=== PATIENT | male | born 1990 | race Caucasian/White ===

== ENCOUNTER 2020-02-01 15:28 | Emergency (ER) | payer OTHER, SELFPAY ==
[2020-02-01 15:33] VITALS: BP 114/62; PULSE 114; RESP 15; TEMP 36.9; O2SAT 98; BMI 21.4
--- NOTE | 2020-02-01 15:44 | ED_ITS ---
HPI - General Adult General: Chief complaint: General Medical Stated complaint: poss heat stroke Time Seen by Provider: 02/01/20 15:40 History of Present Illness: HPI narrative: Patient states worked outside all these and just got hot. Has been sweating he just felt nauseous right leg started cramping up. She does have a couple weeks ago. Onset (ago): hour(s) Relieving factors: none Associated symptoms: Reports nausea; Deny chest pain, dyspnea, headache(s) or rash Review of Systems Const: Denies: fever(s), chills or body aches Eyes: Denies: change in vision or blurry vision ENMT: Denies: throat pain or nasal congestion Card: Denies: chest pain or dyspnea on exertion Resp: Denies: dyspnea, productive cough or non-productive cough GI: Reports: nausea : Denies: difficulty urinating Musc: Reports: other (Muscle cramps right leg shoulder); Denies: extremity pain Skin/Breast: Denies: rash Neuro: Denies: headache(s) Psych: Denies: anxiety or depression Aashish/Lymph: Denies: easy bruising PFSH ED PFSH: Social History Smoking and tobacco status: never smoked Physical Exam Const: COMMON NORMALS: no acute distress, average body habitus and patient oriented x3 HENMT: COMMON NORMALS: normocephalic HEAD & SCALP: normal to inspection and normocephalic FACE & SINUS: normal facial exam Eye: COMMON NORMALS: conjunctivae normal GENERAL EYE: appearance normal, both eyes and all related structures CONJUNCTIVA: Yes conjunctivae normal Neck/C-Spine: COMMON NORMALS: no JVD Chest: COMMONS NORMALS: normal inspection of the chest Resp: COMMON NORMALS: normal respiratory effort and clear to auscultation bilaterally AUSCULTATION: clear to auscultation bilaterally Cardio: COMMON NORMALS: no JVD, regular rate and regular rhythm RATE: regular rate RHYTHM: regular rhythm GI: COMMON NORMALS: Normal to inspection, nondistended, normoactive bowel sounds present Extremity: COMMON NORMALS: normal to inspection and full ROM Neuro: COMMON NORMALS: patient oriented x3 Course Vital Signs: Vital signs: Vital Signs Temperature 98.4 F 02/01/20 15:33 Pulse Rate 114 H 02/01/20 15:33 Respiratory Rate 15 02/01/20 15:33 Blood Pressure 114/62 02/01/20 15:33 Pulse Oximetry 98 02/01/20 15:33 MDM - General Adult MDM Narrative: Medical decision making narrative: sinus tach, 104 bpm Coding Level of Care Code ED Real Estate Loan Processor for Chg Fwd Exam Comprehensive
--- NOTE | 2020-02-01 15:45 | ECG_ITS ---
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 Measurements Intervals [place] Rate: 104 P: 67 MI: 133 QRS: 71 QRSD: 81 T: 45 QT: 305 QTc: 403 Interpretive Statements SINUS TACHYCARDIA NONSPECIFIC T-WAVE ABNORMALITY No previous ECG available for comparison Electronically Signed On 02-01-2020 16:13:36 CDT by Tara Maier M.D. [id number]
[2020-02-01 16:07] LABS: Basophils # 0.1 10^3/uL (0.0-0.1); Basophils % 0.4 %; Eosinophils % 0.3 %; Hematocrit 44.4 % (42.0-52.0); Hemoglobin 15.1 g/dL (11.7-16.6); Lymphocytes # 0.6 10^3/uL (0.8-4.8); Lymphocytes % 4.3 %; Mean Corpuscular Hemoglobin 29.9 pg (28.0-34.0); Mean Corpuscular Volume 87.9 fL (80-94); Mean Platelet Volume 8.9 fL (7.4-10.4); Monocytes # 1.1 10^3/uL (0.2-0.9); Monocytes % 8.4 %; Neutrophils # 11.3 10^3/uL (1.8-7.7); Neutrophils % 86.1 %; Nucleated Red Blood Cells % 0 %; Platelet Count 230 10^3/cmm (130-400); Red Blood Count 5.05 10^6/uL (4.1-5.3); Red Cell Distribution Width 11.8 % (12.1-15.1); White Blood Count 13.1 10^3/uL (4.0-10.0)
[2020-02-01] MEDS: orphenadrine 30 mg/mL Inj 2 mL 60 MG IVP (16:07)
[2020-02-01] MEDS: sodium chloride 0.9% 1,000 ML 999 ML IV (16:08)
[2020-02-01 16:44] LABS: Alanine Aminotransferase 14 U/L (0-41); Albumin Level 4.3 g/dL (3.5-5.2); Alkaline Phosphatase 58 IU/L (40-130); Anion Gap 16.1 (5-19); Aspartate Amino Transferase 15 U/L (0-40); Blood Urea Nitrogen 12 mg/dL (6-20); Calcium 9.5 mg/dL (8.5-10.5); Carbon Dioxide 24 mmol/L (22-29); Chloride 104 mmol/L (98-107); Globulin 2.3 g/dL (1.3-4.6); Glucose 112 mg/dL (65-115); Osmolality Calculated 287 mOsm/kg (285-295); Potassium 4.1 mmol/L (3.5-5.1); Sodium 140 mmol/L (136-145); Total Bilirubin 0.6 mg/dL (0.15-1.2); Total Protein 6.6 g/dL (6.6-8.7)
[2020-02-01 16:47] LABS: Add Urine Microscopic? NO
[2020-02-01 16:54] LABS: Bilirubin Urine Neg (NEGATIVE); Blood Urine Neg (Negative); Glucose Urine UA Norm (Normal); Ketones Urine Negative (Negative); Leukocyte Esterase Urine Negative (Negative); Nitrate Urine Negative (Negative); Protein Urine Neg (Negative); Specific Gravity, Urine 1.025 (1.005-1.030); Urine Appearance Clear (CLEAR); Urine Color Yellow (Yellow); Urobilinogen Urine 1 mg/dL (Negative); pH Urine 5 (5-7)
[2020-02-01 17:22] VITALS: BP 114/75; PULSE 78; RESP 18; O2SAT 98
== END 2020-02-01 17:25 | disposition home or self-care (01) ==
PROVIDERS: Emergency Provider Nurse Practitioner Family
DX: R25.2 Cramp and spasm (principal)
CPT/HCPCS: 12345; 36415; 80053; 81003; 85025; 93005; 96361; 96374; 96375; 99283; J2360; J7030

== ENCOUNTER 2022-04-30 01:05 | Emergency (ER) | payer OTHER, SELFPAY ==
[2022-04-30 01:08] VITALS: BP 129/79; PULSE 54; RESP 16; TEMP 36.6; O2SAT 99; BMI 22.8
--- NOTE | 2022-04-30 01:15 | ECG_ITS ---
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 Measurements Intervals [place] Rate: 54 P: 73 NV: 139 QRS: 81 QRSD: 98 T: 62 QT: 407 QTc: 389 Interpretive Statements SINUS BRADYCARDIA POSSIBLE LEFT ATRIAL ENLARGEMENT [-0.1mV P-WAVE IN V1/V2] Compared to ECG 02/01/2020 15:52:33 Sinus tachycardia no longer present T-wave abnormality no longer present Electronically Signed On 04-30-2022 10:41:22 CDT by Bhupinder Wilde M.D. [id number]
--- NOTE | 2022-04-30 01:50 | XRR_ITS ---
PROCEDURE INFORMATION: Exam: XR Chest Exam date and time: 04/30/2022 5:49 AM Age: 32 years old Clinical indication: Shortness of breath; Chest pressure; Patient HX: C/O chest pain with SOB. ; Additional info: Cp TECHNIQUE: Imaging protocol: Radiologic exam of the chest. Views: 1 view. COMPARISON: CT abdomen pelvis w con* [id number] 12/20/2018 11:37 AM FINDINGS: Lungs: No consolidation. Pleural spaces: Unremarkable. No pleural effusion. No pneumothorax. Heart/Mediastinum: No cardiomegaly. Bones/joints: No acute fracture. XR/XR chest 1V portable [id number] IMPRESSION: No acute findings.
[2022-04-30 02:41] LABS: SARS Covid-2 Antigen Negative (Negative)
--- NOTE | 2022-04-30 06:05 | ED_ITS ---
HPI - Chest Pain General: Chief Complaint: Chest Pain Stated Complaint: CP, SOB Time Seen by Provider: 04/30/22 05:57 Source: patient Mode of arrival: ambulatory Limitations: no limitations History of Present Illness: 32-year-old male states that he has had a cough for the last 4 to 5 days he been having constant chest pain on the left side of his chest he states that pain is sharp in nature he states it is worse with movement and palpation improved with rest. Patient denies any fever denies any vomiting states pain is currently a 2 out of 10 sharp in nature. Associated symptoms: Deny abdominal pain, dyspnea, fever(s), nausea or vomiting Review of Systems Const: Denies: fever(s), chills, body aches or change in appetite Eyes: Denies: blurry vision or eye discomfort ENMT: Denies: throat pain or dental pain Card: Denies: chest pain Resp: Denies: dyspnea GI: Denies: abdominal pain, nausea, vomiting or diarrhea : Denies: dysuria Musc: Denies: neck pain or back pain Skin/Breast: Denies: rash Neuro: Denies: headache(s) Psych: Denies: depression Aashish/Lymph: Denies: easy bruising All/Imm: Denies: urticaria PFSH ED PFSH: Medical History (Updated 04/30/22 @ 06:31 by Yefri Christy MD) No pertinent past medical history Social History Smoking and tobacco status: never smoked Physical Exam Const: COMMON NORMALS: no acute distress, patient oriented x3 and healthy appearing HENMT: COMMON NORMALS: normocephalic and atraumatic HEAD & SCALP: normocephalic and atraumatic Eye: COMMON NORMALS: Equal, round and reactive pupils present and EOMs intact bilaterally PUPIL: Yes Equal, round and reactive pupils present Neck/C-Spine: COMMON NORMALS: full ROM and supple Chest: COMMONS NORMALS: normal inspection of the chest OTHER: point tender over left chest Resp: COMMON NORMALS: normal respiratory effort, No retractions, No use of accessory muscles and clear to auscultation bilaterally AUSCULTATION: clear to auscultation bilaterally Cardio: COMMON NORMALS: regular rate, regular rhythm and No murmurs present (Cardio) RATE: regular rate RHYTHM: regular rhythm GI: COMMON NORMALS: Normal to inspection, nondistended, normoactive bowel sounds present, Soft to palpation, non-tender and no masses PALPATION: Yes Soft to palpation Extremity: COMMON NORMALS: normal to inspection and full ROM Neuro: COMMON NORMALS: patient oriented x3, moves all extremities and no focal motor deficits Psych: COMMON NORMALS: mental status grossly normal, Normal thought process present and cooperative THOUGHT PROCESS: Normal thought process present Skin: COMMON NORMALS: no rashes or lesions noted and no wounds GENERAL SKIN EXAM: no rashes or lesions noted Course Vital Signs: Vital signs: Vital Signs Temperature 97.8 F 04/30/22 01:08 Pulse Rate 44 L 04/30/22 06:18 Respiratory Rate 12 04/30/22 06:18 Blood Pressure 105/51 04/30/22 06:18 Pulse Oximetry 100 04/30/22 06:18 MDM - Chest Pain Medical Decision Making Patient presents here with chest pains atypical in nature he has had a cough and pain sharp in nature for days EKG x-ray normal he is point tender on left chest likely causing his pain he has no signs of acute coronary syndrome or pulmonary embolism he is stable for discharge she is to follow-up with PCP and return if worsening. Lab Data Laboratory Results SARS-CoV-2 Ag (Rapid) Negative (Negative) 04/30/22 02:16 Discharge Plan Discharge Patient Disposition: Home Clinical Impression: Chest pain Condition: Stable Prescriptions: New Naprosyn 500 mg tablet 500 mg PO BID PRN (Reason: pain) Qty: 20 0RF No Action ibuprofen 200 mg Tablet 400 mg PO PRN Thermotabs 287-180-15 mg Tablet See Rx Instructions .ROUTE .COMPLEX Rx Instructions: 1 - 2 tab orally TODAY PT STATES HE DOESNT USUALLY TAKE THIS MEDICATION Discharge Orders: Discharge ED (Routine); Ordered 04/30/22 Ordered By: Yefri Christy Discharge Diet: Advance as tolerated Discharge Activity: Resume usual activity Patient Instructions: Chest Pain (ED) Stand Alone Forms: Work/School Release Coding Level of Care Code ED 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
[2022-04-30 06:15] VITALS: BP 105/51; PULSE 44; RESP 12; O2SAT 100
[2022-04-30 06:18] VITALS: BP 105/51; PULSE 44; RESP 12; O2SAT 100
[2022-04-30] MEDS: ketorolac 60 mg/2 mL INJ IM (06:19)
== END 2022-04-30 06:20 | disposition home or self-care (01) ==
PROVIDERS: Emergency Medicine; Emergency Provider Emergency Medicine
DX: R07.9 Chest pain, unspecified (principal)
CPT/HCPCS: 71045; 87426; 93005; 99285; J1885

== ENCOUNTER 2022-05-15 09:31 | Emergency (ER) | payer OTHER, SELFPAY ==
[2022-05-15 09:32] VITALS: BP 127/59; PULSE 88; RESP 18; TEMP 36.6; O2SAT 98; BMI 23.0
[2022-05-15 09:35] VITALS: BP 127/59; PULSE 62; RESP 15; O2SAT 98
--- NOTE | 2022-05-15 09:51 | ED_ITS ---
Documented by User: Christine Choi PA-C 05/15/22 09:55 HPI - Chest Pain General: Chief Complaint: Chest Pain Stated Complaint: DIFFICULTY BREATHING/ CHEST PAIN Time Seen by Provider: 05/15/22 09:43 Source: patient Mode of arrival: ambulatory Limitations: no limitations History of Present Illness: 32-year-old male presents to the ER via EM after a sudden onset of right-sided chest/rib pain this morning while at work. 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 Patient reports this continued for about 10 minutes and was positional. Certain movements made it worse. Patient denies any left-sided chest pain. Denies any radiating chest pain. Patient reports he is had this before it was on the left side. Patient denies any recent injury. Patient reports he is comfortable at this time and as long as he is not moving the pain does not bother him. Patient has not had anything for the pain at this time. Patient denies any shortness of breath currently, the shortness of breath was only with the immediate sharp pain he felt. Review of Systems General: Reports: 10 or more systems reviewed and unremarkable except in HPI and below PFSH ED 2 PFSH: Medical History No pertinent past medical history Social History Smoking and tobacco status: never smoked Physical Exam Const: COMMON NORMALS: no acute distress, average body habitus, patient oriented x3, no limitations, healthy appearing, alert and well nourished Chest: OTHER: Mild right-sided chest wall tenderness, inferior and lateral Resp: COMMON NORMALS: normal respiratory effort, No retractions and clear to auscultation bilaterally EFFORT & INSPECTION: Yes able to speak in complete s entences AUSCULTATION: clear to auscultation bilaterally OTHER: She has some mild worsening of pain with a deep breath on the right side. Cardio: COMMON NORMALS: regular rate, regular rhythm and No murmurs present (Cardio) RATE: regular rate RHYTHM: regular rhythm GI: COMMON NORMALS: Normal to inspection, nondistended, normoactive bowel sounds present, Soft to palpation and non-tender PALPATION: Yes Soft to palpation Extremity: COMMON NORMALS: normal to inspection and full ROM Neuro: COMMON NORMALS: patient oriented x3 SENSORIUM/ORIENTATION: Yes alert Psych: COMMON NORMALS: mental status grossly normal, Normal thought process present and cooperative THOUGHT PROCESS: Normal thought process present Skin: COMMON NORMALS: no rashes or lesions noted and no wounds GENERAL SKIN EXAM: no rashes or lesions noted Course ED course: 32-year-old male presents to the ER via EM after a sudden onset of right-sided chest/rib pain this morning while at work. 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 Patient reports this continued for about 10 minutes and was positional. Certain movements made it worse. Patient denies any left-sided chest pain. Denies any radiating chest pain. Patient reports he is had this before it was on the left side. Patient denies any recent injury. Patient reports he is comfortable at this time and as long as he is not moving the pain does not bother him. Patient has not had anything for the pain at this time. Patient denies any shortness of breath currently, the shortness of breath was only with the immediate sharp pain he felt. Patient's pain is mostly resolved at this time. Imaging is not necessary as patient has had no injury. Imaging is not going to change treatment plan. Patient is comfortable at this time. Vital Signs: Vital signs: Vital Signs Temperature 98 F 05/15/22 09:32 Pulse Rate 62 05/15/22 10:05 Respiratory Rate 16 05/15/22 10:05 Blood Pressure 127/59 05/15/22 10:05 Pulse Oximetry 98 05/15/22 10:05 Oxygen Delivery Me thod 05/15/22 10:05 MDM - Chest Pain Medical Decision Making Given history and physical exam, likely patient is experiencing intercostal muscle spasms/strain. 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 The pain is made worse with certain motions and deep breaths. I have no suspicion this is cardiac related. We will do a muscle relaxer, steroid, anti-inflammatory at this time for patient's pain. Recommended he stay off work for 2 days. Recommend rest. Follow-up with PCP in 3-4 days. Return to the ER with any new or worsening symptoms. Patient verbalized understanding and was in agreement with the treatment plan. Critical Care Time Critical Care Time: Critical Care Time: No Discharge Plan Discharge Patient Disposition: Home Clinical Impression: Rib pain on right side, Muscle spasm Condition: Stable Prescriptions: New prednisone 20 mg tablet 40 mg PO DAILY 4 Days Qty: 8 0RF methocarbamol 750 mg tablet 750 mg PO Q8H Qty: 21 0RF No Action ibuprofen 200 mg Tablet 400 mg PO PRN Thermotabs 287-180-15 mg Tablet See Rx Instructions .ROUTE .COMPLEX Rx Instructions: 1 - 2 tab orally TODAY PT STATES HE DOESNT USUALLY TAKE THIS MEDICATION Naprosyn 500 mg tablet 500 mg PO BID PRN (Reason: pain) Qty: 20 0RF Discharge Orders: Discharge ED (Routine); Ordered 05/15/22 Ordered By: Christine Choi Discharge Diet: Usual diet Discharge Activity: Increase activity as tolerated Patient Instructions: Opioid Safety, Pain Management Activity Restrictions/Additional Instructions: Take Robaxin and prednisone as prescribed. Okay to take ibuprofen, 800 mg every 4 hours with a neck several days. Warm moist heat recommended. Topical muscle rub recommended but do not use with heat. Recommend follow-up with chiropractor in 1 week. Work note given for the next 2 days. Follow-up with PCP in 1 week. Return to the ER with new or worsening symptoms. Stand Alone Forms: Work/School Release Coding Level of Care Code ED Research Recruiter for Chg Fwd Exam Detailed Documented by User: Martin Whitman DO 05/16/22 06:35 HPI - Chest Pain General: Chief Complaint: Chest Pain Stated Complaint: DIFFICULTY BREATHING/ CHEST PAIN Time Seen by Provider: 05/15/22 09:43 [facility] ED PFSH: Medical History No pertinent past medical history Social History Smoking and tobacco status: never smoked Course Vital Signs: Vital signs: Vital Signs Temperature 98 F 05/15/22 09:32 Pulse Rate 62 05/15/22 10:05 Respiratory Rate 16 05/15/22 10:05 Blood Pressure 127/59 05/15/22 10:05 Pulse Oximetry 98 05/15/22 10:05 Oxygen Delivery Me thod 05/15/22 10:05 MDM - Chest Pain Medical Decision Making Given history and physical exam, likely patient is experiencing intercostal muscle spasms/strain. 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 The pain is made worse with certain motions and deep breaths. I have no suspicion this is cardiac related. We will do a muscle relaxer, steroid, anti-inflammatory at this time for patient's pain. Recommended he stay off work for 2 days. Recommend rest. Follow-up with PCP in 3-4 days. Return to the ER with any new or worsening symptoms. Patient verbalized understanding and was in agreement with the treatment plan. Chart reviewed and patient discussed with midlevel. Agree with assessment and plan. Medical Records I reviewed the patient's medical records. Lab Data I reviewed the patient's lab results. Discharge Plan Discharge Patient Disposition: Home Clinical Impression: Rib pain on right side, Muscle spasm Condition: Stable Prescriptions: New prednisone 20 mg tablet 40 mg PO DAILY 4 Days Qty: 8 0RF methocarbamol 750 mg tablet 750 mg PO Q8H Qty: 21 0RF No Action ibuprofen 200 mg Tablet 400 mg PO PRN Thermotabs 287-180-15 mg Tablet See Rx Instructions .ROUTE .COMPLEX Rx Instructions: 1 - 2 tab orally TODAY PT STATES HE DOESNT USUALLY TAKE THIS MEDICATION Naprosyn 500 mg tablet 500 mg PO BID PRN (Reason: pain) Qty: 20 0RF Discharge Orders: Discharge ED (Routine); Ordered 05/15/22 Ordered By: Christine Choi Discharge Diet: Usual diet Discharge Activity: Increase activity as tolerated Patient Instructions: Opioid Safety, Pain Management Activity Restrictions/Additional Instructions: Take Robaxin and prednisone as prescribed. Okay to take ibuprofen, 800 mg every 4 hours with a neck several days. Warm moist heat recommended. Topical muscle rub recommended but do not use with heat. Recommend follow-up with chiropractor in 1 week. Work note given for the next 2 days. Follow-up with PCP in 1 week. Return to the ER with new or worsening symptoms. Stand Alone Forms: Work/School Release Coding Level of Care Code ED Research Recruiter for Chg Fwd Exam Detailed
[2022-05-15 10:05] VITALS: BP 127/59; PULSE 62; RESP 16; O2SAT 98
== END 2022-05-15 10:20 | disposition home or self-care (01) ==
PROVIDERS: Emergency Provider Physician Assistant
DX: R07.81 Pleurodynia (principal); M62.838 Other muscle spasm
CPT/HCPCS: 99283

== ENCOUNTER 2022-11-05 07:43 | Emergency (ER) | payer OTHER, SELFPAY ==
[2022-11-05 07:49] VITALS: BP 141/59; PULSE 73; RESP 18; TEMP 36.9; O2SAT 98; BMI 23.3
--- NOTE | 2022-11-05 07:57 | XR_ITS ---
WS: [id number] EXAMINATION: XR lumbar spine 2-3V* [id number] L-SPINE : 3 views REASON FOR EXAM: low back pain and injury COMPARISON: None available. ORDER DATE: 11/05/2022 8:02 AM FINDINGS: The lumbar vertebral bodies and the disc spaces are normal in width. In the lumbar vertebra, there i s no evidence of compression deformities or spondylolisthesis. XR/XR lumbar spine 2-3V* [id number] IMPRESSION: UNREMARKABLE LUMBAR SPINE STUDY
--- NOTE | 2022-11-05 07:58 | ED_ITS ---
HPI - Back Pain/Injury General: Chief Complaint: Back Pain/Injury Stated Complaint: low back pain Time Seen by Provider: 11/05/22 07:45 History of Present Illness: Patient is a 32-year-old male who comes to the ED with low back pain. Patient says injury occurred today while at work. 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 While lifting one of the bags of sugar and tossing it he felt a pop in his lower back. He rates his pain currently a 2 out of 10 at rest but it worsens whenever he starts trying to move around. Pain is midline in the lumbar region. He endorses some pain radiating down into his right thigh. Denies any bladder or bowel incontinence, weakness to lower extremities or any pelvic anesthesia. Associated symptoms: Deny abdominal pain, chills, dysuria, fatigue, fever(s), hematuria, nausea or vomiting Review of Systems Const: Denies: fever(s), chills or fatigue Eyes: Denies: change in vision or eye discomfort ENMT: Denies: throat pain, odynophagia, nasal discharge or nasal congestion Card: Denies: chest pain, palpitations, edema, swelling of feet/ankles, dyspnea on exertion or orthopnea Resp: Denies: dyspnea, productive cough or non-productive cough GI: Denies: abdominal pain, nausea, vomiting, diarrhea, constipation or hematochezia : Denies: flank pain, difficulty urinating, dysuria or hematuria Musc: Reports: back pain; Denies: neck pain or extremity swelling Skin/Breast: Denies: rash or new lesions Neuro: Denies: headache(s), numbness in extremities or weakness in extremities PFS ED PFSH: Medical History No pertinent family history No pertinent past medical history Social History Smoking and tobacco status: never smoked Physical Exam Const: COMMON NORMALS: patient oriented x3 and alert GENERAL APPEARANCE: cooperative HENMT: COMMON NORMALS: normocephalic HEAD & SCALP: normocephalic MOUTH: Normal oral and palatal mucosa present THROAT: posterior oropharynx normal and uvula midline Neck/C-Spine: COMMON NORMALS: supple GENERAL: Yes normal visual inspection Resp: COMMON NORMALS: normal respiratory effort, No retractions, No use of accessory muscles and clear to auscultation bilaterally AUSCULTATION: clear to auscultation bilaterally Cardio: COMMON NORMALS: regular rate, regular rhythm, S1 normal heart sound present, S2 normal heart sound present, No gallops present (Cardio), No clicks present (Cardio), No murmurs present (Cardio) and Peripheral pulses 2+ throughout RATE: regular rate RHYTHM: regular rhythm HEART SOUNDS: S1 normal heart sound present and S2 normal heart sound present PERIPHERAL PULSES: Peripheral pulses 2+ throughout GI: COMMON NORMALS: Normal to inspection, nondistended, normoactive bowel sounds present, Soft to palpation, non-tender and no masses PALPATION: Yes Soft to palpation : COMMON NORMALS: Yes no CVA tenderness BLADDER/KIDNEY EXAM: Yes no CVA tenderness Back/Pelvis: COMMON NORMALS: no CVA tenderness LUMBAR SPINE/LOWER BACK: Yes pain with ROM, Yes lumbar spinal tenderness Lumbar spinal tenderness location: L3 and L4 and Yes paraspinal muscle tenderness Lumbar paraspinal muscle tenderness: bilateral Bilateral lumbar paraspinal muscle tenderness: L3 and L4 Extremity: COMMON NORMALS: normal to inspection Neuro: COMMON NORMALS: patient oriented x3 SENSORIUM/ORIENTATION: Yes alert GAIT: Yes Normal gait present Skin: GENERAL SKIN EXAM: dry skin Course Vital Signs: Vital signs: Vital Signs Temperature 98.5 F 11/05/22 07:49 Pulse Rate 50 L 11/05/22 08:52 Respiratory Rate 18 11/05/22 07:49 Blood Pressure 141/59 11/05/22 08:52 Pulse Oximetry 98 11/05/22 08:52 Oxygen Delivery Mn thod 11/05/22 08:16 MDM - Back Pain/Injury Medical Decision Making Patient is a 32-year-old male who comes to the ED with low back pain. Patient says injury occurred today while at work. 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 While lifting one of the bags of sugar and toss ing it he felt a pop in his lower back. He rates his pain currently a 2 out of 10 at rest but it worsens whenever he starts trying to move around. Pain is midline in the lumbar region. He endorses some pain radiating down into his right thigh. Denies any bladder or bowel incontinence, weakness to lower extremities or any pelvic anesthesia. Vital stable. Exam shows some lumbar spinal and paraspinal lumbar muscle tenderness around L3 and L4. Rest of exam is benign. X-ray of the lumbar spine was unremarkable. Patient was diagnosed with strain of lumbar paraspinal muscle and was stable for discharge home. He was sent home with a prescription for a muscle relaxer, NSAID and steroid. Return to ED precautions given. Follow-up with PCP in the next week for reevaluation. Patient understood and agreed with plan. Labs Radiology Impressions Lumbar Spine X-Ray 11/05/22 07:57 IMPRESSION: UNREMARKABLE LUMBAR SPINE STUDY Discharge Plan Discharge Patient Disposition: Home Clinical Impression: Strain of lumbar paraspinal muscle Qualifiers: Encounter type: initial encounter Qualified Code(s): S39.012A - Strain of muscle, fascia and tendon of lower back, initial encounter Condition: Stable Prescriptions: New celecoxib 100 mg capsule 100 mg PO BID PRN (Reason: pain) Qty: 20 0RF cyclobenzaprine 10 mg tablet 10 mg PO BID PRN (Reason: muscle spasm and back pain) Qty: 20 0RF prednisone 5 mg tablets,dose pack See Rx Instructions .ROUTE .COMPLEX Qty: 21 0RF Rx Instructions: prednisone 5 mg: take 8 tablets (40 mg) on Day 1; 7 tablets (35 mg) on Day 2; then decrease by 1 tablet every day until finished No Action ibuprofen 200 mg Tablet 400 mg PO PRN Thermotabs 287-180-15 mg Tablet See Rx Instructions .ROUTE .COMPLEX Rx Instructions: 1 - 2 tab orally TODAY PT STATES HE DOESNT USUALLY TAKE THIS MEDICATION methocarbamol 750 mg tablet 750 mg PO Q8H Qty: 21 0RF Naprosyn 500 mg tablet 500 mg PO BID PRN (Reason: pain) Qty: 20 0RF Discharge Orders: Discharge ED (Routine); Ordered 11/05/22 Ordered By: Amos Carrington Discharge Diet: Regular Discharge Activity: Limit activity as instructed Patient Instructions: Low Back Strain (ED) Activity Restrictions/Additional Instructions: Follow-up with medical provider as directed. Take medications as prescribed. Return to the ER or your medical provider if condition worsens. Please read and understand discharge instructions. Thank you for choosing [facility] for your healthcare needs today. Please realize this is an emergency room and that we are providing you with a medical screening exam and this may not be complete and all inclusive of all the testing and or work up that you may need to determine your ailment or severity of your illness. It is very important that you follow up as instructed or that you return to the Emergency Department should you have concerns or if your condition changes or worsens in any way. 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
[2022-11-05] MEDS: orphenadrine 30 mg/mL Inj 2 mL 60 MG IM (08:06)
[2022-11-05] MEDS: ketorolac 60 mg/2 mL INJ IM (08:06)
[2022-11-05] MEDS: dexamethasone 10 mg/mL INJ IM (08:06)
[2022-11-05 08:16] VITALS: BP 141/59; PULSE 74; O2SAT 97
[2022-11-05 08:52] VITALS: BP 141/59; PULSE 50; O2SAT 98
--- NOTE | 2022-11-11 12:44 | DCPLANNER ---
Addendum entered by Rosalie Jose 11/18/22 14:51: Patient had a follow up appointment scheduled for 11.16.22 at [facility] - patient did attend appointment Original Note: animal shelter manager called patient due to no primary care physician - patient stated that he would like help in getting established with a primary care physician. animal shelter manager called [facility] - spoke with Cathleen, gave clinic patients information. A follow up appointment was scheduled for Wednesday, November 16, 2022 at 2:[address] Rodriguez. animal shelter manager gave patient appointment information.
== END 2022-11-05 08:56 | disposition home or self-care (01) ==
PROVIDERS: Emergency Provider Physician Assistant
DX: S39.012A Strain of muscle, fascia and tendon of lower back, initial encounter (principal); X50.0XXA Overexertion from strenuous movement or load, initial encounter
CPT/HCPCS: 72100; 96372; 99284; J1100; J1885; J2360

== ENCOUNTER → 2022-11-16 14:36 | Outpatient (BNVA) | payer OTHER, SELFPAY | PROVIDERS: Visit Provider Family Medicine | DX: R03.0 Elevated blood-pressure reading, without diagnosis of hypertension (principal) | CPT/HCPCS: 80053; 80061; 83721; 85025 ==

== ENCOUNTER → 2022-12-10 15:46 | Outpatient (BNVA) | payer OTHER, SELFPAY | PROVIDERS: Referring Provider Family Medicine; Visit Provider Student in an Organized Health Care Education/Training Program | DX: M25.519 Pain in unspecified shoulder (principal) | CPT/HCPCS: 20610; 73030; 99203; J3301 ==

== ENCOUNTER 2023-09-15 11:57 | Inpatient (IN) | payer SELFPAY ==
[2023-09-15 12:25] VITALS: BP 136/76; PULSE 58; RESP 18; TEMP 36.6; O2SAT 99; BMI 24.1
[2023-09-15 12:30] LABS: Basophils % 0.5 %; Eosinophils % 0.2 %; Hematocrit 45.3 % (37-53); Lymphocytes # 1.6 10^3/uL (0.8-4.8); Lymphocytes % 20.4 %; Mean Corpuscular HGB Conc 35.3 g/dL (30-55); Mean Corpuscular Hemoglobin 30.3 pg (27-33); Mean Corpuscular Volume 85.8 fl (82-101); Mean Platelet Volume 8.9 fL (7.4-10.4); Monocytes # 0.6 10^3/uL (0.2-0.9); Neutrophils # 5.75 10^3/uL (1.8-7.7); Neutrophils % 71.7 %; Nucleated Red Blood Cells % 0 %; Platelet Count 230 10^3/cmm (157-399); Red Blood Count 5.28 10^6/uL (3.85-5.65); White Blood Count 8.03 10^3/uL (3.29-11.43)
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
[2023-09-15 12:48] LABS: Alanine Aminotransferase 15 U/L (0-41); Albumin Level 4.7 g/dL (3.5-5.2); Alkaline Phosphatase 62 U/L (40-130); Anion Gap 16.7 (5-19); Aspartate Amino Transferase 12 U/L (0-40); Blood Urea Nitrogen 9 mg/dL (6-20); Calcium 9.4 mg/dL (8.5-10.5); Carbon Dioxide 25 mmol/L (22-29); Chloride 99 mmol/L (98-107); Creatinine Clr Calc Pharmacy 101.4018; Globulin 2.6 g/dL (1.3-4.6); Glomerular Filtration Rate 86.6 mL/min (90-130); Glucose 85 mg/dL (65-115); Osmolality Calculated 282 mOsm/kg (285-295); Potassium 3.7 mmol/L (3.5-5.1); Sodium 137 mmol/L (136-145); Total Bilirubin 1.4 mg/dL (0.15-1.2); Total Protein 7.3 g/dL (6.6-8.7)
[2023-09-15 12:49] VITALS: BP 136/76; PULSE 58; RESP 18; O2SAT 99
[2023-09-15 12:59] LABS: Acetaminophen < 5.0 ug/mL (10-30); Add Urine Microscopic? YES; Bilirubin Urine 1+ (Negative); Blood Urine 2+ (Negative); Glucose Urine UA Norm (Normal); Ketones Urine 3+ (Negative); Leukocyte Esterase Urine Trace (Negative); Nitrate Urine Negative (Negative); Protein Urine Trace (Negative); Salicylate < 0.3 mg/dL (3-10); Specific Gravity, Urine 1.025 (1.005-1.030); Urine Appearance Clear (CLEAR); Urine Color Yellow (Yellow); Urobilinogen Urine 4 mg/dL (Negative); pH Urine 5 (5-7)
[2023-09-15 13:02] LABS: RBC Urine 0-4 /hpf (0-2); WBC Urine 0-4 /hpf (0-5)
[2023-09-15 13:03] LABS: Add Urine Culture? No; Amorphous Sediment Urine TRACE /hpf; Bacteria Urine TRACE /hpf; Mucus Urine 3+ /hpf
[2023-09-15 13:44] LABS: Amphetamines Screen Urine Negative (Negative); Barbiturates Screen Urine Negative (Negative); Benzodiazepines Screen Urine Negative (Negative); Cocaine Screen Urine Negative (Negative); Opiate Screen Urine Negative (Negative); PCP Screen Urine Negative (Negative); THC Screen Urine Negative (Negative)
[2023-09-15 17:41] VITALS: BP 134/76; PULSE 59; RESP 16; TEMP 36.7; O2SAT 99
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
[2023-09-15] MEDS: hyDROXYzine 25 mg Capsule 50 MG PO (20:56)
[2023-09-15] MEDS: trazodone 50 mg Tablet PO (20:56)
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
[2023-09-15 22:00] VITALS: BP 127/75; PULSE 60; RESP 18; TEMP 36.9; O2SAT 99
[2023-09-16 06:00] VITALS: BP 145/78; PULSE 97; RESP 18; TEMP 36.9; O2SAT 99
--- NOTE | 2023-09-16 06:31 | PC.NURSE ---
PT WAS ADMINISTERED TRAZODONE 50 MG FOR INSOMNIA AND VISTARIL 50 MG FOR REPORTS OF INCREASED ANXIETY EARLIER IN THE SHIFT. MEDICATIONS ARE DEEMED EFFECTIVE. PT HAS SLEPT APPROXIMATELY 9 HOURS LAST NIGHT WITH NO ISSUES.
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
[2023-09-16 13:45] VITALS: BP 128/75; PULSE 78; RESP 16; TEMP 36.4; O2SAT 98
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
[2023-09-16 16:43] VITALS: BP 128/75; PULSE 78; RESP 16; TEMP 36.4; O2SAT 98
== END 2023-09-16 17:04 | disposition home or self-care (01) | DRG 885 ==
LOC: ER 12:40 → NP 16:02
PROVIDERS: Admitting Provider Psychiatry & Neurology Psychiatry; Emergency Provider Family Medicine; Visit Provider Psychiatry & Neurology Psychiatry
DX: F32.1 Major depressive disorder, single episode, moderate (principal); R45.851 Suicidal ideations; F41.9 Anxiety disorder, unspecified; E78.1 Pure hyperglyceridemia; Z63.0 Problems in relationship with spouse or partner
CPT/HCPCS: 36415; 80053; 80306; 80307; 81001; 85025; 97150; 97165; 99285

== ENCOUNTER → 2023-10-07 08:53 | Outpatient (BNVA) | payer BC, SELFPAY | PROVIDERS: PCP Family Medicine; Visit Provider Family Medicine | DX: E78.1 Pure hyperglyceridemia (principal) | CPT/HCPCS: 80061 ==

== ENCOUNTER → 2023-11-24 17:42 | Outpatient (BNVA) | payer BC, SELFPAY | PROVIDERS: PCP Family Medicine; Visit Provider Emergency Medicine | DX: M79.641 Pain in right hand (principal) | CPT/HCPCS: 73130 ==

== ENCOUNTER → 2025-04-13 10:29 | Outpatient (BNVA) | payer OTHER, SELFPAY | PROVIDERS: PCP Family Medicine; Visit Provider Orthopaedic Surgery | DX: M25.511 Pain in right shoulder (principal); S46.911A Strain of unspecified muscle, fascia and tendon at shoulder and upper arm level, right arm, initial encounter; W19.XXXA Unspecified fall, initial encounter | CPT/HCPCS: 73030 ==

== ENCOUNTER 2025-04-15 17:09 | Emergency (ER) | payer OTHER, SELFPAY ==
[2025-04-15 17:12] VITALS: BP 117/71; PULSE 85; RESP 18; TEMP 36.8; O2SAT 97; BMI 24.7
[2025-04-15] MEDS: tetanus-dipt-pertussis 0.5 mL SDV IM (17:31)
[2025-04-15 17:47] VITALS: BP 114/69; PULSE 79; O2SAT 95
[2025-04-15] MEDS: bacitracin ointment Pkt 1 EACH TOPICAL (18:15)
--- NOTE | 2025-04-15 18:48 | W.ED.WOUNDLC ---
HPI - Wound/Laceration General: Chief Complaint: Wound/Laceration Stated Complaint: lac rt forearm Time Seen by Provider: 04/15/25 17:28 History of Present Illness: 35-year-old male was at home fell through a glass door than outstretched hand and sustained 2-1/2 inch laceration on his right forearm on the volar surface. It does go across a tattoo of a word on his forearm. No other injuries unsure of last tetanus shot Related Data Previous Rx's ?Medication ?Instructions ?Recorded hydroxyzine pamoate 25 mg capsule 50 mg (2 x 25 mg) PO Q6H PRN 09/16/23 Anxiety 30 days #120 caps trazodone 50 mg tablet 50 mg PO BEDTIME PRN Sleep 30 days 09/16/23 #30 tabs methocarbamol 750 mg tablet 750 mg PO TID 5 days #15 tabs 04/03/25 Allergies Allergy/AdvReac Type Severity Reaction Status Date / Time No Known Allergies Allergy Verified 04/13/25 10:39 [facility] ED PFSH: Medical History Depression Hypertriglyceridemia Anxiety Moderate major depression No pertinent family history No pertinent past medical history Family History Other Diabetes Denies family history of CAD (coronary artery disease) Clotting disorder Dementia Hyperlipidemia Psychiatric illness Chronic kidney disease (CKD) Anesthesia complication Bleeding disorder Lung disease Cancer Hypertension Stroke Social History Smoking and tobacco/nicotine status: never used tobacco/nicotine Alcohol intake: never Substance/Drug Use: never Lives independently: Yes Marital status: Number of children: 1 Current occupational status: employed Current occupation: [employer] Special venessa needs: No Agree to transfusion: Yes Physical Exam Extremity: OTHER: Gaping 2 inch laceration on the right forearm no active bleeding neurologically intact. Subcutaneous fat exposed no evidence of injury to tendon or muscle underlying Procedures Laceration Laceration 1: Site: upper extremity (Volar surface right forearm) Side (If applicable): right Size (cm): 6 Description: linear Depth: simple, single layer Local Anesthetic: lidocaine 1% Amount of anesthesia used (mL): 7 Pre-repair: irrigated extensively and deep structures intact Skin layer closed with: nylon Size (cm): 4-0 and 5-0 Number of sutures: 5 Technique: simple, interrupted (4) and running (1) Course Vital Signs: Vital signs: Vital Signs Temperature 98.2 F 04/15/25 17:12 Pulse Rate 65 04/15/25 18:50 Respiratory Rate 18 04/15/25 17:12 Blood Pressure 122/69 04/15/25 18:50 Pulse Oximetry 98 04/15/25 18:50 Oxygen Delivery Me thod Room Air 04/15/25 17:47 MDM - Wound/Laceration Medical Decision Making Wound edges approximated wound care instructions given discharge home. After patient left we discovered that the bottle in the room was labetalol not lidocaine we have contacted Geni to return to the emergency room to monitor. No radiology studies performed this visit Discharge Plan Discharge Patient Disposition: Home Clinical Impression: Laceration Condition: Stable Prescriptions: No Action methocarbamol 750 mg tablet 750 mg PO TID 5 Days Qty: 15 0RF trazodone 50 mg Tablet 50 mg PO BEDTIME PRN (Reason: Sleep) 30 Days Qty: 30 1RF hydroxyzine pamoate 25 mg Capsule 50 mg PO Q6H PRN (Reason: Anxiety) 30 Days Qty: 120 1RF Discharge Orders: Discharge ED (Routine); Ordered 04/15/25 Ordered By: Martin Whitman Referrals: Cristobal Rodriguez MD [Primary Care Provider, Family Practice] Discharge Diet: Usual diet Discharge Activity: Resume usual activity Patient Instructions: Opioid Safety, Pain Management, Patient Portal & Alan Instructions Activity Restrictions/Additional Instructions: Thank you for choosing [facility] for your healthcare needs today. It is very important that you follow up as instructed or that you return to the Emergency Department should you have concerns or if your condition changes or worsens in any way. Emergency department visits are focused on emergent conditions, in some cases you may require further evaluation on an outpatient basis. You were seen in the emergency room with laceration to your right forearm. Stitches were applied to close the wound. Apply [id number] topical antibiotic to the wound once daily. Sutures should be removed in 7 to 10 days. When you are working cover the wound with a bandage for at least an hour or 2/day keep it open to the air. You may shower but avoid soaking the wound in water. (Please note that included in your discharge packet is information concerning opioid safety and pain management. This information is given to all patients were discharged from the ER regardless of their discharge diagnosis or the medicines they usually take or are prescribed.) Print Language: Citizen Of [place] Coding Level of Care Code ED Cloud Automation Tester for Clyde Alcocer
[2025-04-15 18:50] VITALS: BP 122/69; PULSE 65; O2SAT 98
== END 2025-04-15 18:51 | disposition home or self-care (01) ==
PROVIDERS: Emergency Provider Family Medicine; PCP Family Medicine
DX: S51.811A Laceration without foreign body of right forearm, initial encounter (principal); W19.XXXA Unspecified fall, initial encounter
CPT/HCPCS: 12002; 90471; 90715; 99283; J9999

== ENCOUNTER 2025-04-15 20:36 | Emergency (ER) | payer OTHER, SELFPAY ==
[2025-04-15 20:40] VITALS: BP 119/79; PULSE 64; RESP 16; O2SAT 97; BMI 24.7
--- NOTE | 2025-04-15 20:45 | ECG_ITS ---
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 Measurements Intervals [place] Rate: 81 P: 76 MO: 130 QRS: 84 QRSD: 90 T: 67 QT: 360 QTc: 420 Interpretive Statements SINUS RHYTHM WITH SINUS ARRHYTHMIA EARLY REPOLARIZATION Compared to ECG 04/30/2022 01:11:28 Sinus bradycardia no longer present Electronically Signed On 04-15-2025 21:48:18 CDT by Nicolas Cook M.D. [email or web address]
[2025-04-15 20:54] VITALS: BP 116/75; BP 124/69; BP 125/70; PULSE 67; PULSE 76; PULSE 97
--- NOTE | 2025-04-15 21:10 | W.ED.RECABL ---
HPI - Recheck/Abnormal Lab/Rx General: Chief Complaint: Recheck/Abnormal Lab/Rx Stated Complaint: Doctors called pt in Time Seen by Provider: 04/15/25 20:42 History of Present Illness: 35-year-old male was asked to return to the emergency room he had been here earlier in had a laceration laceration was repaired however quality eng cleaning up we noted that medication in the room was labetalol not lidocaine. He did been given approximately 7 mL estimated dose of 30 to 35 mg. We were able to contact him he had been at [facility]. He had not had any symptoms nurses still asked him to read my request to return to the emergency room for reevaluation. On arrival here he is awake and alert with no specific complaints. Related Data Previous Rx's ?Medication ?Instructions ?Recorded hydroxyzine pamoate 25 mg capsule 50 mg (2 x 25 mg) PO Q6H PRN 09/16/23 Anxiety 30 days #120 caps trazodone 50 mg tablet 50 mg PO BEDTIME PRN Sleep 30 days 09/16/23 #30 tabs methocarbamol 750 mg tablet 750 mg PO TID 5 days #15 tabs 04/03/25 Allergies Allergy/AdvReac Type Severity Reaction Status Date / Time No Known Allergies Allergy Verified 04/13/25 10:39 [facility] ED PFSH: Medical History Depression Hypertriglyceridemia Anxiety Moderate major depression No pertinent family history No pertinent past medical history Family History Other Diabetes Denies family history of CAD (coronary artery disease) Clotting disorder Dementia Hyperlipidemia Psychiatric illness Chronic kidney disease (CKD) Anesthesia complication Bleeding disorder Lung disease Cancer Hypertension Stroke Social History Smoking and tobacco/nicotine status: never used tobacco/nicotine Alcohol intake: never Substance/Drug Use: never Lives independently: Yes Marital status: Number of children: 1 Current occupational status: employed Current occupation: [employer] Special venessa needs: No Agree to transfusion: Yes Physical Exam Const: COMMON NORMALS: no acute distress GENERAL APPEARANCE: cooperative and comfortable ORIENTATION/CONSCIOUSNESS: Yes awake, Yes oriented to person, Yes oriented to place and Yes oriented to time Extremity: COMMON NORMALS: normal to inspection, capillary refill normal, no clubbing, cyanosis or edema, no calf tenderness and no pedal edema Neuro: SENSORIUM/ORIENTATION: Yes oriented to person, Yes oriented to place and Yes oriented to time Skin: NARRATIVE SKIN EXAM: Examination of the skin at the edges there is no evidence of abnormality skin is not indurated there is no blanching or discoloration wound well-approximated. Course Vital Signs: Vital signs: Vital Signs Pulse Rate 72 04/15/25 21:47 Respiratory Rate 16 04/15/25 21:47 Blood Pressure 122/71 04/15/25 21:47 Pulse Oximetry 96 04/15/25 21:47 Oxygen Delivery Me thod Room Air 04/15/25 20:40 MDM - Recheck/Abnormal Lab/Rx Medical Decision Making EKG normal sinus rhythm rate of 81 parable 130 QTc 398 orthostatics normal no adverse effects from labetalol will discharge home. Orthostatics normal. No no adverse effects from labetalol. Wound redressed discharged home No abnormality at the wound site. Medical Records I reviewed the patient's medical records. Lab Data I reviewed the patient's lab results. No radiology studies performed this visit Discharge Plan Discharge Patient Disposition: Home Clinical Impression: Medication administered in error, Laceration Condition: Stable Prescriptions: No Action methocarbamol 750 mg tablet 750 mg PO TID 5 Days Qty: 15 0RF trazodone 50 mg Tablet 50 mg PO BEDTIME PRN (Reason: Sleep) 30 Days Qty: 30 1RF hydroxyzine pamoate 25 mg Capsule 50 mg PO Q6H PRN (Reason: Anxiety) 30 Days Qty: 120 1RF Discharge Orders: Discharge ED (Routine); Ordered 04/15/25 Ordered By: Martin Whitman Referrals: Cristobal Rodirguez MD [Primary Care Provider, Family Practice] Patient Instructions: Opioid Safety, Pain Management, Patient Portal & Alan Instructions Activity Restrictions/Additional Instructions: [facility]. It is very important that you follow up as instructed or that you return to the Emergency Department should you have concerns or if your condition changes or worsens in any way. Emergency department visits are focused on emergent conditions, in some cases you may require further evaluation on an outpatient basis. We had asked you to return to the emergency room once a medication administration error was realized. Medication you were given was labetalol. Typically this medication is given IV not intradermal. Medication is a beta-david it is used to lower blood pressure. Your EKG is normal your vital signs are normal there is no evidence of the medicine having lowered your blood pressure or your heart rate at this time. Examination of the laceration site wound appears normal. Continue previously advised wound care instructions. Sutures should be removed in 7 to 10 days. (Please note that included in your discharge packet is information concerning opioid safety and pain management. This information is given to all patients were discharged from the ER regardless of their discharge diagnosis or the medicines they usually take or are prescribed.) Print Language: German Coding Level of Care Code ED Executive Chef for Clyde Alcocer
[2025-04-15 21:47] VITALS: BP 122/71; PULSE 72; RESP 16; O2SAT 96
== END 2025-04-15 21:53 | disposition home or self-care (01) ==
PROVIDERS: Emergency Provider Family Medicine; PCP Family Medicine
DX: Z53.21 Procedure and treatment not carried out due to patient leaving prior to being seen by health care provider (principal)
CPT/HCPCS: 93005; 99283

== ENCOUNTER 2025-04-25 16:27 | Emergency (ER) | payer OTHER, SELFPAY ==
[2025-04-25 16:49] VITALS: BP 119/69; PULSE 69; RESP 14; TEMP 36.3; O2SAT 97
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
== END 2025-04-25 17:17 | disposition home or self-care (01) ==
PROVIDERS: Emergency Provider Physician Assistant; PCP Family Medicine
DX: Z48.02 Encounter for removal of sutures (principal)
CPT/HCPCS: 99281

== ENCOUNTER 2025-07-11 19:38 | Emergency (ER) | payer OTHER, SELFPAY ==
[2025-07-11 19:43] VITALS: BP 126/76; PULSE 52; TEMP 36.6; O2SAT 99
[2025-07-11 20:06] VITALS: BP 131/77; PULSE 52; O2SAT 95
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
[2025-07-11 20:52] VITALS: BP 116/87; PULSE 58; O2SAT 97
[2025-07-11 21:36] VITALS: BP 139/65; PULSE 60; O2SAT 98
== END 2025-07-11 21:37 | disposition home or self-care (01) ==
PROVIDERS: Emergency Provider Physician Assistant; PCP Family Medicine
DX: S13.9XXA Sprain of joints and ligaments of unspecified parts of neck, initial encounter (principal); V89.2XXA Person injured in unspecified motor-vehicle accident, traffic, initial encounter; M25.512 Pain in left shoulder
CPT/HCPCS: 72125; 73030; 99284